=== PATIENT | female | born 1955 | race Caucasian/White ===

== ENCOUNTER → 2016-12-28 | Outpatient (CLI) | payer OTHER ==
--- NOTE | 2016-12-28 17:12 | MY ---
EXAMINATION: Bilateral digital mammography utilizing CAD. HISTORY: Screening exam. Comparison is made to previous studies dated 12/11/2015, 01/31/2014, 012, 06/01/2011 . FINDINGS: Bilateral scattered fibroglandular densities. There is a waxing and waning small cyst w ithin the outer right breast. No suspicious calcifications, masses or architectural distortions. N o pathologic appearing lymph nodes, no abnormal skin thickening or nipple inversion. CAD highlight ed regions appear normal at this time. IMPRESSION: BI-RADS category II - Benign finding. Continued screening according to ACR-ACS guidelin es suggested. THE FALSE-NEGATIVE RATE OF MAMMOGRAM IS APPROXIMATELY 10%. MANAGEMENT OF A PALPABLE ABNORMALITY MUST BE BASED UPON CLINICAL GROUNDS. SENSITIVITY FOR DETECTION OF ABNORMALITIES IN DENSE BREASTS IS LOW. NOTE: A letter will be sent to the patient regarding findings. [facility] -- [place] [phone] - FAX [phone]
== END ==
LOC: MW.MAM 12:57
PROVIDERS: ATTEND Obstetrics & Gynecology
DX: Z12.31 Encounter for screening mammogram for malignant neoplasm of breast (principal)
CPT/HCPCS: G0202; G0202-26

== ENCOUNTER 2017-01-04 09:07 | Day surgery (SDC) | payer OTHER ==
[~2017-01-04 09:07] MED LIST: Lactated Ringers 1,000 ML IV SCH; Lidocaine 2% 5 ML SDV ONE; Midazolam 1 MG/ML 2 ML SDV ONE; Propofol 200 MG/20 ML SDV ONE; Sodium Chloride 0.9% 10 ML Syringe FLUSH PRN; Sodium Chloride 0.9% 2.5 ML Syringe FLUSH PRN; fentaNYL 100 MCG/2 ML SDV ONE
--- NOTE | 2017-01-04 09:31 | PCM.PREANE ---
Preanesthetic Assessment - Anesthesia/Transfusion/Family Hx Anesthesia History: Prior Anesthesia Reaction Type of Anesthesia Reaction: Excessive Nausea/Vomiting Family History of Anesthesia Reaction: No Transfusion History: No Prior Transfusion(s) Intubation History: Unknown - Review of Systems General: No Symptoms Pulmonary: No Symptoms Cardiovascular: No Symptoms Gastrointestinal: Difficulty swallowing Neurological: No Symptoms Other: Reports: None - Physical Assessment Height: 1.65 m Weight: 101.605 kg ASA Class: 2 Mental Status: Alert & Oriented x3 Airway Class: Mallampati = 2 Dentition: Reports: Normal Dentition, [place](s) (x6 upper front) Thyro-Mental Finger Breadths: 2 Mouth Opening Finger Breadths: 3 ROM/Head Extension: Full Lungs: Clear to auscultation, Normal respiratory effort Cardiovascular: Regular Rate, Regular Rhythm - Allergies Allergies/Adverse Reactions: Allergies Allergy/AdvReac Type Severity Reaction Status Date / Time acetaminophen [From Tylenol] Allergy Vomiting Verified 01/02/17 13:24 cefuroxime axetil Allergy Rash Verified 01/02/17 13:24 [From Ceftin] celecoxib [From Celebrex] Allergy Difficulty Verified 01/02/17 13:24 Breathing erythromycin base Allergy Rash Verified 01/02/17 13:24 [Erythromycin Base] Penicillins Allergy Rash Verified 01/02/17 13:24 Sulfa (Sulfonamide Allergy Rash Verified 01/02/17 13:24 Antibiotics) sulfamethoxazole Allergy Rash Verified 01/02/17 13:24 [From Bactrim] tetanus toxoid, adsorbed Allergy unknown Verified 01/02/17 13:24 trimethoprim [From Bactrim] Allergy Rash Verified 01/02/17 13:24 - Blood Blood Available: No - Anesthesia Plan Pre-Op Medication Ordered: None - Acknowledgements Anesthesia Type Planned: MAC Pt an Appropriate Candidate for the Planned Anesthesia: Yes Alternatives and Risks of Anesthesia Discussed w Pt/Guardian: Yes Pt/Guardian Understands and Agrees with Anesthesia Plan: Yes PreAnesthesia Questionnaire HEENT History: Reports: Other (see below) Other HEENT History: dysphagia Cardiovascular History: Reports: Hypertension Respiratory History: Reports: Asthma, Sleep apnea Other Respiratory History: uses CPAP Gastrointestinal History: Reports: Other (see below) (esophageal recurrent stricture) Genitourinary History: Reports: Renal calculus, Urinary incontinence B2B APPOINTMENT SETTER History: Reports: None Musculoskeletal History: Reports: Osteoarthritis Neurological History: Reports: Other (see below) Other Neuro History: restless leg syndrome Psychiatric History: Reports: None Endocrine/Metabolic History: Reports: Obesity/BMI 30+ Hematologic History: Reports: None Immunologic History: Reports: None Oncologic (Cancer) History: Reports: None Dermatologic History: Reports: None - Past Surgical History Head Surgeries/Procedures: Reports: None HEENT Surgical History: Reports: None Cardiovascular Surgical History: Reports: None Respiratory Surgical History: Reports: None GI Surgical History: Reports: Cholecystectomy, EGD (with dilatation x3) Female Surgical History: Reports: None Endocrine Surgical History: Reports: None Neurological Surgical History: Reports: None Musculoskeletal Surgical History: Reports: Arthroscopic knee, Hip replacement ( right), Knee replacement (left) Oncologic Surgical History: Reports: None Dermatological Surgical History: Reports: None - SUBSTANCE USE Smoking Status *Q: Never Smoker Recreational Drug Use History: No - HOME MEDS Home Medications: Home Meds Albuterol [Ventolin HFA] 1 - 2 puff INH ASDIRECTED 01/02/17 [History] Aspirin [Adult Low Dose Aspirin EC] 81 mg PO DAILY 01/02/17 [History] Cetirizine [ZyrTEC] 10 mg PO DAILY 01/02/17 [History] Diltiazem HCl [Dilt-Xr] 180 mg PO DAILY 01/02/17 [History] EPINEPHrine [Epipen 2-Yunior] 1 injection IM ASDIRECTED PRN 01/02/17 [History] Fluticasone/Salmeterol [Advair 250-50 Diskus] 1 puff INH DAILY 01/02/17 [History ] Multivitamin [Daily Multiple Vitamin] 1 tab PO DAILY 01/02/17 [History] Pramipexole Di-HCl [Pramipexole Dihydrochloride] 0.125 mg PO DAILY 01/02/17 [ History] RABEprazole Sodium [Rabeprazole Sodium] 20 mg PO DAILY 01/02/17 [History] Tolterodine Tartrate [Tolterodine Tartrate ER] 4 mg PO DAILY 01/02/17 [History] - CURRENT (IN HOUSE) MEDS Current Meds: Current Medications Lactated Ringer's (Ringers, Lactated) 1,000 mls @ 125 mls/hr IV ASDIRECTED [place] Sodium Chloride (Saline Flush) 10 ml FLUSH ASDIRECTED PRN PRN Reason: Keep Vein Open Sodium Chloride (Saline Flush) 2.5 ml FLUSH ASDIRECTED PRN PRN Reason: Keep Vein Open Discontinued Medications Fentanyl (Sublimaze) Confirm Administered Dose 100 mcg .ROUTE .STK-MED ONE Stop: 01/04/17 07:18 Lidocaine (Xylocaine-Mpf 2%) Confirm Administered Dose 5 ml .ROUTE .STK-MED ONE Stop: 01/04/17 07:18 Midazolam HCl (Versed 1 Mg/Ml) Confirm Administered Dose 2 mg .ROUTE .STK-MED ONE Stop: 01/04/17 07:19 Propofol (Diprivan 20 Ml) Confirm Administered Dose 400 mg .ROUTE .STK-MED ONE Stop: 01/04/17 07:18
[2017-01-04] MEDS ORDERED: Propofol 200 MG/20 ML SDV ONE ×3 (10:48)
[2017-01-04] MEDS ORDERED: fentaNYL 100 MCG/2 ML SDV ONE (10:48)
[2017-01-04] MEDS ORDERED: Phenylephrine/Normal Saline 100 MCG/ML 10 ML Syringe ONE (10:48)
[2017-01-04] MEDS ORDERED: Succinylcholine/Normal Saline 200 MG/10 ML Syringe ONE (10:48)
--- NOTE | 2017-01-04 11:29 | PCM.POSTAN ---
POST ANESTHESIA ASSESSMENT - MENTAL STATUS Mental Status: alert - RESPIRATORY Respiratory Status: respiratory rate WNL, airway patent, O2 saturation stable - CARDIOVASCULAR CV Status: pulse rate WNL, blood pressure stable - GASTROINTESTINAL GI Status: no symptoms - POST OP HYDRATION Hydration Status: adequate & stable - OBSERVATIONS Free Text/Narrative:: No anesthesia problems, patient regurgitated food from esophagus during EGD ( part of her stomach was in her chest due to hiatal hernia). She was quickly suctioned and intubated for remainder of the procedure. Tolerated well.Dr Kemp plan to put her on prophilactic antibiotic.
--- NOTE | 2017-01-04 12:03 | PCM.OPNOTE ---
- General Post-Op/Procedure Note Date of Surgery/Procedure: 01/04/17 Operative Procedure(s): Diagnostic EGD and colonoscopy Findings: Hiatal hernia. 2 sigmoid colon polyps. Gross evidence of reflux with chronically irritated vocal cords. Aspirated after EGD but before the colonoscopy Pre Op Diagnosis: Dysphagia, screening colonoscopy Post-Op Diagnosis: Hiatal hernia, aspiration, sigmoid colon polyps Anesthesia Technique: MAC Primary Surgeon: Polnia Kemp Condition: Good Free Text/Narrative:: Intake & Output 01/03/17 01/04/17 01/04/17 22:59 06:59 14:59 Intake Total 1100 Balance 1100
[2017-01-04 13:04] VITALS: BP 148/86
--- NOTE | 2017-01-04 21:02 | OR ---
SURGEON: MEETA HURD MD DATE OF PROCEDURE: 01/04/2017 PREOPERATIVE DIAGNOSIS: Gastric reflux, screening colonoscopy. POSTOPERATIVE DIAGNOSIS: Hiatal hernia, gastric reflux, 2 sigmoid polyps. INSTRUMENT USED: Olympus colonoscope and endoscope. ANESTHESIA: MAC. EXTENT OF EXAM: To the second portion of the duodenum during the endoscopic portion, to the cecum during the colonoscopic portion. PREPARATION: Good. LIMITATIONS: None. INDICATIONS FOR EXAMINATION: The patient is a 61-year-old female, who presents for a screening colonoscopy. On further questioning, the patient has had two esophageal dilations in the past by previous providers. The patient did not know why the esophageal dilations were done, but continued to have swallowing difficulty and significant reflux. She is currently not on any PPI therapy. The patient and I discussed the need for another diagnostic EGD as well as a screening colonoscopy. We discussed both procedures including the expected perioperative course. We discussed the risks, including bleeding, infection, or damage to surrounding structures, including perforation. The patient verbalized understanding and wishes to proceed. PROCEDURE IN DETAIL: The patient was brought to the endoscopy suite and placed in a beach chair position. A time-out was completed verifying the patient's name, age, date of , allergies, and procedure to be performed. A bite block was placed in the patient's mouth and monitored anesthesia care was induced. Continuous oxygen was provided via nasal cannula throughout the procedure. After adequate sedation was achieved, the Olympus endoscope was passed over the patient's tongue down into her posterior oropharynx. I was able to look at the patient's vocal cords, which appeared chronically irritated. The scope was then passed down into the esophagus and advanced under direct visualization to the level of the second portion of duodenum. This appeared normal and a photograph was taken. The scope was then pulled back to allow inspection of the remainder of the upper GI tract. The duodenal bulb appeared normal and the scope was brought back into the stomach. Photographs taken of the pylorus as well as with the scope retroflexed. Upon retroflexion, I noticed a large amount of the stomach was actually up in the patient's chest suggestive of a hiatal hernia. Biopsies were taken of the gastric mucosa along the antrum, body, and fundus. The patient was noted to also have multiple gastric polyps throughout the stomach lining. One of these was taken and sent to pathology as well. The scope was then brought up into the patient's chest and again the gastric mucosa was noted up in this area. Photograph was taken of the GE junction, which was up several centimeters beyond the diaphragmatic hiatus. The remainder of the esophagus was examined and there appeared to be food stuffs actually within the esophagus, even proximally. The scope was then removed from the patient and this portion the procedure terminated. We went on and flipped the patient into a left lateral decubitus position for the colonoscopy portion when the patient vomited up stomach contents and aspirated them. The patient was suctioned out and quickly intubated to protect her airway. The patient's oxygen saturations improved and remained in the high 90s throughout the remainder of the procedure. The decision was made to proceed with a colonoscopic portion of the exam. A digital rectal exam was performed which was within normal limits. A well lubricated colonoscope was inserted in the rectum and advanced under direct visualization to the level of cecum. The cecum was identified by both visual and anatomic landmarks. A photograph was taken of the cecal cap. But I was unable to retroflex the scope within the cecum due to significant looping more proximally. The scope was fully withdrawn while examining the color, texture, anatomy, and integrity of mucosa from the cecum to the anal canal. Two small 1 to 2 mm sessile polyps were noted within the distal sigmoid colon and removed using a cold biopsy forceps. These were sent to pathology labeled as sigmoid colon polyp #1 and 2. The scope was then brought into the rectum and retroflexed to allow visualization of the anal canal opening. This appeared normal and a photograph was taken. The scope was then straightened out and removed from the patient. The cecum to anus time was 10 minutes. The patient was then transferred to the recovery room where she was extubated successfully and remained in stable condition. ENDOSCOPIC DIAGNOSIS: Hiatal hernia, gastric reflux, aspiration, and sigmoid colon polyp. RECOMMENDATIONS: The patient will start on PPI therapy and we will obtain a barium swallow study. Given the patient's aspiration during the procedure, I will start her on a 5-day course of levofloxacin. We will see the patient in 2 weeks to follow up on the sigmoid polyp pathology as well as discuss referral to a underground electrician and surgeon for possible repair of her hiatal hernia. BRIANNE QUINONES /[id number]
== END 2017-01-04 12:13 | disposition home or self-care (01) ==
LOC: MW.SDS 09:07
PROVIDERS: ATTEND Surgery
DX: Z12.11 Encounter for screening for malignant neoplasm of colon (principal); K63.5 Polyp of colon; K21.9 Gastro-esophageal reflux disease without esophagitis; K29.50 Unspecified chronic gastritis without bleeding; K31.7 Polyp of stomach and duodenum; I10 Essential (primary) hypertension; E66.9 Obesity, unspecified; G25.81 Restless legs syndrome; Z88.2 Allergy status to sulfonamides; Z88.0 Allergy status to penicillin; Z88.1 Allergy status to other antibiotic agents; Z79.82 Long term (current) use of aspirin; Z79.899 Other long term (current) drug therapy; Z98.890 Other specified postprocedural states
CPT/HCPCS: 43239; 45380; J2250; J3010; J7120; 00740; 88305; 88312; J2704

== ENCOUNTER → 2017-01-13 | Outpatient (CLI) | payer OTHER ==
--- NOTE | 2017-01-13 14:38 | CR ---
EXAMINATION: Double contrast barium esophagram HISTORY: Hernia COMPARISON: None TECHNIQUE: A standard double contrast barium esophagram was performed. FINDINGS: The patient swallowed barium without difficulty. No filling defect or ulceration. Esophage al mucosa appears normal. Mild tertiary waves are noted. There is a small to moderate sliding hiatal hernia. Mild gastroesophageal reflux is also noted. IMPRESSION: 1. Small to moderate hiatal hernia. 2. Mild presbyesophagus and reflux.
== END ==
LOC: MW.DI 09:08
PROVIDERS: ATTEND Surgery
DX: K44.9 Diaphragmatic hernia without obstruction or gangrene (principal); K22.8 Other specified diseases of esophagus; K21.9 Gastro-esophageal reflux disease without esophagitis
CPT/HCPCS: 74220; 74220-26